=== PATIENT | male | born 1995 | race Caucasian/White ===

== ENCOUNTER 2017-02-13 22:50 | Emergency (ER) | payer OTHER ==
[2017-02-13 23:00] VITALS: BP 138/72; PULSE 79; RESP 18; TEMP 97.9; O2SAT 95
--- NOTE | 2017-02-13 23:17 | EDPHY ---
H & P Time Seen by Provider: 02/13/17 23:02 HPI/ROS: CHIEF COMPLAINT: Foreign body sensation in throat HISTORY OF PRESENT ILLNESS: 22-year-old male presents emergency department reporting he feels like he swallowed a chicken bone. Patient was eating chicken 1 hour prior to arrival when he felt something scratched his throat and feels like it is stuck there. He is able to swallow his saliva and water, he has not tried to eat anything solid. He denies vomiting. No difficulty breathing or shortness of breath. REVIEW OF SYSTEMS: A comprehensive 10 point review of systems is otherwise negative aside from elements mentioned in the history of present illness. Smoking Status: Never smoked Physical Exam: GEN: Awake, alert, oriented, no acute distress RESP: nl resp effort, no stridor, lungs clear to auscultation HEENT: Posterior pharynx with no erythema, uvula midline, no foreign body seen MSK: Normal appearing SKIN: No rash Constitutional: Initial Vital Signs Temperature (C) 36.6 C 02/13/17 22:56 Heart Rate 79 02/13/17 22:56 Respiratory Rate 18 02/13/17 22:56 Blood Pressure 138/72 H 02/13/17 22:56 O2 Sat (%) 95 02/13/17 22:56 O2 Delivery Mode Room Air Allergies/Adverse Reactions: No Known Allergies Allergy (Unverified 02/13/17 22:56) Home Medications: Medication Instructions Recorded Adderall 20 mg (*) 02/13/17 Medical Decision Making - Diagnostics Imaging Results: Imaging Impressions Soft Tissue Neck X-Ray 02/13/17 23:15 Impression: Cervical soft tissues negative for radiopaque foreign body. Results called and discussed with Debra Camara NP on 02/13/2017 at 23:29 Imaging: Discussed imaging studies w/ square dance caller Radiologist ED Course/Re-evaluation: Patient is able to drink jordan isabel without difficulty. Soft tissue neck x-ray shows no evidence of foreign body. Patient is given Wil crackers to eat. He is able to eat these without difficulty and reports he is feeling better. Patient states he continues to feel a little scratch in his throat but does not feel like there is something stuck. His airway is not compromised, he will be discharged home. I will have him follow up with Gastroenterology for any continued symptoms this week. He is given strict return precautions for any worsening symptoms, new symptoms or concerns. Departure - Departure Disposition: Home, Routine, Self-Care Clinical Impression: Foreign body sensation in throat Condition: Good Instructions: Esophageal Foreign Body (ED) Additional Instructions: Return to the emergency department for any worsening symptoms, new symptoms or concerns, difficulty breathing, difficulty swallowing. Follow-up with a emission specialist for any continued this week. Referrals: Kennedy Medina MD, FACG [Medical Doctor] - As per Instructions ( Water Pumper on-call)
== END 2017-02-13 23:50 | disposition home or self-care (01) ==
DX: R09.89 Other specified symptoms and signs involving the circulatory and respiratory systems (principal)